=== PATIENT | female | born 1930 | race Hispanic/Latino ===

== ENCOUNTER 2018-03-15 06:35 | Observation (INO) | payer MEDICARE ==
[2018-03-15 07:17] LABS: #Basophils 0.1 thou/uL (0.0-0.2); #Eosinphils 0.2 thou/uL (0.0-0.7); #Lymphocytes 1.9 thou/uL (1.20-3.40); #Monocytes 0.7 thou/uL (0.11-0.59); #Neutrophils 6.7 thou/uL (1.40-6.50); %Basophils 0.6 % (0.0-1.0); %Eosinophils 1.8 % (0.0-10.0); %Lymphocytes 19.5 % (21.0-51.0); %Monocytes 7.5 % (0.0-10.0); %Neutrophils 70.7 % (42.0-75.0); Hemoglobin 13.2 g/dL (12.0-16.0); Mean Corpuscular HGB CONC 31.9 g/dL (32.0-36.0); Mean Corpuscular Hemoglobin 28.8 pg (27.0-31.0); Mean Corpuscular Volume 90.3 fL (78.0-98.0); Mean Platelet Volume 8.7 fL (7.4-10.4); Platelet Count 194 thou/uL (130-400); RBC Distribution Width 12.8 % (11.5-14.5); White Blood Cell (WBC) Count 9.5 thou/uL (4.8-10.8)
[2018-03-15 07:30] LABS: ALT (SGPT) 13 U/L (8-55); AST (SGOT) 13 U/L (5-34); Alkaline Phosphatase 50 U/L (40-150); Anion Gap 16 mmol/L (10-20); BUN (Urea Nitrogen) 39 mg/dL (9.8-20.1); Bilirubin, Total 0.9 mg/dL (0.2-1.2); Calc. Creatinine Clearance 0 mL/min (70-130); Calcium 9.9 mg/dL (7.8-10.44); Carbon Dioxide 22 mmol/L (23-31); Chloride 104 mmol/L (98-107); Estimated GFR-MDRD 30; Globulin 3.1 g/dL (2.4-3.5); Glucose 95 mg/dL (83-110); Potassium 4.2 mmol/L (3.5-5.1); Protein, Total 7.1 g/dL (6.0-8.3); Sodium 138 mmol/L (136-145)
[2018-03-15 07:35] LABS: CKMB 1.1 ng/mL (0-6.6); Troponin I Less than 0.010 ng/mL (< 0.028)
--- NOTE | 2018-03-15 07:53 | CT ---
CT CERVICAL SPINE: Date: 03/15/18 Multiple axial tomograms obtained through the cervical spine with multiplanar reconstruction. INDICATION: Fall with injury to neck. FINDINGS: Vertebral bodies maintain height and alignment. Moderate degenerative changes are noted. Loss of disc space and hypertrophic changes are most prominent at C5-6 and C6-7 levels. Posterior spondylitic jakob nges are seen throughout the cervical spine, but are especially prominent at C5-6 and C6-7 where the se changes impinge on the anterior cord. Posterior laminectomy changes are present at these levels pr eventing significant central canal stenosis. There is no evidence of an acute fracture. IMPRESSION: Degenerative and postoperative changes of the cervical spine noted. No evidence of acute fracture. POS: [facility]
--- NOTE | 2018-03-15 07:54 | CT ---
CT HEAD WITHOUT CONTRAST: Date: 03/15/18 Multiple axial tomograms obtained through the head without IV enhancement. INDICATION: Fall with injury to head. FINDINGS: Mild cortical volume loss with ventriculomegaly. No evidence of acute hemorrhage. No mass or infarct. Moderately severe chronic ischemic white matter change. IMPRESSION: No acute abnormality identified. POS: [facility]
[2018-03-15] MEDS ORDERED: Lidocaine 1% (PF) 30 ML VIAL ONE (08:49)
[2018-03-15] MEDS ORDERED: HYDROcodone/Acetaminophen 5/325 mg Tablet ONE (09:04)
[2018-03-15 09:21] LABS: Bilirubin Negative (Negative); Blood, Urine Negative (Negative); Clarity CLEAR (Clear); Glucose, Urine (Dipstick) Negative (Negative); Leukocyte Negative (Negative); Nitrite Negative (Negative); Protein, Urine (Dipstick) Trace mg/dL (Neg-Trace); Specific Gravity, Urine 1.014 (1.002-1.036)
[2018-03-15] MEDS ORDERED: Morphine 4 MG/ML VIAL ONE (10:19)
[2018-03-15] MEDS ORDERED: Ondansetron PF 4 MG/2 ML Vial ONE (11:12)
--- NOTE | 2018-03-15 11:37 | RAD ---
RIGHT SHOULDER RADIOGRAPHS 2 VIEWS: Date: 03/15/18 PROVIDED CLINICAL HISTORY: Right shoulder pain status post injury. FINDINGS: There is anterior dislocation of the right shoulder. Associated fracture is not evident. Visualized r ight lung field appears clear. IMPRESSION: Anterior right shoulder dislocation. POS: [facility]
--- NOTE | 2018-03-15 11:38 | RAD ---
3 VIEWS RIGHT SHOULDER: Date: 03/15/18 PROVIDED CLINICAL HISTORY: Post reduction. FINDINGS: Interval reduction of the previously described anterior right shoulder dislocation. No evidence for f racture. IMPRESSION: As above. POS: [facility]
[2018-03-15] MEDS ORDERED: Acetaminophen 325 MG TAB PO PRN ×2 (13:11→14:37)
[2018-03-15] MEDS ORDERED: Ondansetron PF 4 MG/2 ML Vial IVP PRN (13:11)
[2018-03-15] MEDS ORDERED: Sodium Chloride 0.9% 1,000 ML IV SCH (13:11)
[2018-03-15] MEDS ORDERED: Ondansetron ODT 4 MG TAB SL PRN (13:11)
[2018-03-15 13:29] VITALS: BMI 32.5
[2018-03-15] MEDS ORDERED: Bisacodyl 5 MG TAB PO PRN (14:37)
[2018-03-15] MEDS ORDERED: Senokot S 8.6-50 MG TAB PO PRN (14:37)
[2018-03-15] MEDS ORDERED: Dextrose 5% in Water 1,000 ML IV PRN (14:39)
[2018-03-15] MEDS ORDERED: HumaLOG 300 UNITS/3 ML VIAL SC PRN (14:39)
[2018-03-15] MEDS ORDERED: Dextrose 50% Abboject 50 ML SYRINGE SLOW IVP PRN (14:39)
[2018-03-15] MEDS ORDERED: oxyCODONE 5 MG TAB PO PRN (14:40)
[2018-03-15] MEDS ORDERED: Morphine 2 MG/ML SYRINGE SLOW IVP PRN (14:41)
[2018-03-15] MEDS: Heparin 5,000 UNITS/ML VIAL SC SCH ×2 (15:26→21:11)
[2018-03-15] MEDS ORDERED: hydrALAZINE 20 MG/ML VIAL SLOW IVP PRN (17:19)
--- NOTE | 2018-03-15 20:32 | HP ---
CHIEF COMPLAINT: Fall. HISTORY OF PRESENT ILLNESS: The patient is a very pleasant 87-year-old female with a past medical hi story of hypertension and severe osteoarthritis who presented to the hospital after a fall. The lisandro ent's family is at the bedside. The patient lives with her son who stated that he heard her calling for him. When he was there, she was on the floor and also her walker was tipped over. The patient h as a history of dementia and really cannot provide a very great H&P. Unknown if patient got dizzy or if she just had a mechanical fall. The patient denies any recent palpitations or chest pain or any significant changes recently. No recent medications were changed. Patient did have her right should er injection by Orthopedic I believe a week ago. The patient in the ER was found to have a 3-4 cm la ceration. She did have required some stitches. Also, she had a dislocated right shoulder which was put back in place and currently is on a sling. PAST MEDICAL HISTORY: She has a history of diabetes, hyperlipidemia, and hypertension. PAST SURGICAL HISTORY: She has had no significant surgical history. This patient has had multiple b ack surgeries, also in the past. SOCIAL HISTORY: She denies any history of alcohol use, drug use or smoking history. She is a DNR pe r her daughters. REVIEW OF SYSTEMS: Patient is complaining of some right-sided shoulder pain. Otherwise, all negativ e except for the ones mentioned above in the HPI. ALLERGIES: CODEINE. Her allergy is nausea. MEDICATIONS: Metoclopramide 100 mg daily, simvastatin 40 mg daily, furosemide 40 mg every other day, gabapentin 100 mg daily, hydralazine 50 daily and glipizide 2.5 mg daily. PHYSICAL EXAMINATION: VITAL SIGNS: Temperature 98.6, 14, 81, her blood pressure is 180/60. GENERAL: She is awake, alert, oriented x3. Has some pain to her right shoulder. CARDIOVASCULAR: S1, S2 present. No murmurs, rubs or gallops. LUNGS: Clear to auscultation, rhonchi or wheezes noted. ABDOMEN: Soft, nontender. Bowel sounds are present x2. EXTREMITIES: No edema. Pedal pulses are present x2. She does have mild edema to lower extremity. Pedal pulses are present x2. NEUROVASCULAR: No focal deficits are noted. SKIN: She does have an abrasion to her left forehead area. LABORATORY DATA: As of the following: WBC of 9.5, hemoglobin of 13.2, hematocrit 41.5, platelets of 194. Chemistry: Sodium 130, potassium of 4.2, BUN of 39, creatinine of 1.62, which is chronic. He r glucose was 147. Her urine was completely normal. She did have a chest x-ray, brain CT, shoulder x-ray and a cervical spine which was essentially normal except for the shoulder x-ray indicated the d islocation which was put back in place by ER. The only thing that was noted on her x-rays was she melendrez d some degenerative changes. ASSESSMENT AND PLAN: The patient is a very pleasant 87-year-old female who comes in after a fall. 1. Possible syncope versus mechanical fall. It was unwitnessed. We will get an echocardiogram just to make sure that there was nothing in terms of a cardiac longoria that caused her to have a syncopal ep isode. Patient will be a good candidate for inpatient rehabilitation. We will continue some pain me dication. 2. She has history of chronic kidney disease, stable. We will continue to monitor. 3. Diabetes. We will continue medication. Her hemoglobin A1c was done recently was 6.2. She is 87 years old. I would recommend against any antidiabetic medications. 4. Hypertension. We will continue her home medications. 5. Deep venous thrombosis prophylaxis. We will put patient on subcutaneous heparin.
[2018-03-15] MEDS ORDERED: Prevnar 13-Val Conj/PF 0.5 ML SYRINGE IM ONE (21:00)
[2018-03-15] MEDS ORDERED: Atorvastatin Calcium 20 MG TAB PO SCH (21:00)
[2018-03-15] MEDS ORDERED: Gabapentin 100 MG CAP PO SCH (21:00)
[2018-03-15] MEDS: hydrALAZINE 25 MG TAB PO SCH (21:12)
[2018-03-16] MEDS ORDERED: Ondansetron ODT 4 MG TAB SL PRN (04:50)
[2018-03-16] MEDS ORDERED: Ondansetron PF 4 MG/2 ML Vial IVP PRN (04:50)
[2018-03-16] MEDS ORDERED: Sodium Chloride 0.9% 1,000 ML IV SCH (05:00)
[2018-03-16 05:42] LABS: #Lymphocytes 0.9 thou/uL (1.20-3.40); #Monocytes 0.7 thou/uL (0.11-0.59); #Neutrophils 6.5 thou/uL (1.40-6.50); %Basophils 0.2 % (0.0-1.0); %Eosinophils 0.2 % (0.0-10.0); %Lymphocytes 10.7 % (21.0-51.0); %Monocytes 8.7 % (0.0-10.0); %Neutrophils 80.2 % (42.0-75.0); Hemoglobin 10.9 g/dL (12.0-16.0); Mean Corpuscular HGB CONC 32.3 g/dL (32.0-36.0); Mean Corpuscular Hemoglobin 29.2 pg (27.0-31.0); Mean Corpuscular Volume 90.5 fL (78.0-98.0); Mean Platelet Volume 9.5 fL (7.4-10.4); Platelet Count 176 thou/uL (130-400); RBC Distribution Width 12.8 % (11.5-14.5); Red Blood Cell (RBC) Count 3.75 mill/uL (4.20-5.40); White Blood Cell (WBC) Count 8.1 thou/uL (4.8-10.8)
[2018-03-16 06:07] LABS: Anion Gap 12 mmol/L (10-20); BUN (Urea Nitrogen) 37 mg/dL (9.8-20.1); Calc. Creatinine Clearance 30 mL/min (70-130); Calcium 9.1 mg/dL (7.8-10.44); Carbon Dioxide 22 mmol/L (23-31); Chloride 107 mmol/L (98-107); Estimated GFR-MDRD 33; Glucose 151 mg/dL (83-110); Potassium 4.4 mmol/L (3.5-5.1); Sodium 137 mmol/L (136-145)
[2018-03-16] MEDS ORDERED: Furosemide 40 MG TAB PO SCH (09:00)
[2018-03-16] MEDS ORDERED: glipiZIDE 5 MG TAB PO SCH (09:00)
[2018-03-16] MEDS: hydrALAZINE 25 MG TAB PO SCH (10:08)
[2018-03-16] MEDS: Heparin 5,000 UNITS/ML VIAL SC SCH ×2 (10:12→15:19)
[2018-03-16 16:37] VITALS: BP 174/76; TEMP 98.4
--- NOTE | 2018-03-16 18:25 | DIS ---
DATE OF ADMISSION: 03/15/2018 DATE OF DISCHARGE: 03/16/2018 DISCHARGE DIAGNOSES: 1. Possible syncope. 2. Fall. 3. Hypertension. 4. Diabetes. HOSPITAL COURSE: Patient is a very pleasant 87-year-old female who initially presented to the hospit al after a fall, unknown if this was a syncopal episode or not. She did have a brain CT, cervical sp ine and her right shoulder x-ray. CT head and cervical spine just indicated some degenerative change s. The patient has history of significant back surgeries in the past and she walks normally with a w alker. Her mobility is very limited. She did have a dislocation of her right shoulder which was put back in place in the ER and currently has a sling. Patient did have an echocardiogram ordered; saul mcginnis, the results have not been read as of yet which is pending. The patient states she feels much be tter today. Family would like the patient to go to inpatient rehabilitation. She is a DNR. The pat ient normally functions, gets up from the bed to the bathroom, walks around the kitchen with a walker . LABORATORY DATA: Laboratory results longoria no UTI, no infection. Pneumonia was noted. Labs were sign ificantly normal. PHYSICAL EXAMINATION: VITAL SIGNS: 98.0, 73, 16, 98% on room air, 135/72. GENERAL: She is awake, alert, oriented x3, does not appear in distress. CARDIOVASCULAR: S1, S2 present. No murmurs, rubs or gallops. LUNGS: Clear to auscultation. No rhonchi or wheezes noted. ABDOMEN: Soft, nontender. Bowel sounds are present. EXTREMITIES: No edema. Pedal pulses are present x2. She does have her right arm in a sling. NEUROLOGIC: She is able to move her fingers and able to squeeze her fingers also. DISCHARGE MEDICATIONS: Simvastatin 40 mg at bedtime, metoprolol 100 daily, hydralazine 25 mg b.i.d., glipizide 2.5 daily, gabapentin 100 mg p.o. at bedtime, furosemide 40 mg every other day, vitamin D3 1000 units daily, Senokot 2 tabs b.i.d. Again, she will be discharged to rehabilitation. She will follow up with her primary and again I do have an echocardiogram which is pending. I have notified the rehab coordinator about this, so that t he rehabilitation physician can keep an eye on it and also, I will save her in my records to follow u p with that.
--- NOTE | 2018-03-22 23:07 | EKG ---
Test Reason : Blood Pressure : / mmHG Vent. Rate : 082 BPM Atrial Rate : 082 BPM P-R Int : 132 ms QRS Dur : 080 ms QT Int : 372 ms P-R-T Axes : 089 008 117 degrees QTc Int : 434 ms Normal sinus rhythm Nonspecific ST and T wave abnormality Abnormal ECG Confirmed by EMMA SORIA ([id number]), development editor NORM PADRON ([id number]) on 03/22/2018 11:06:43 PM Referred By: Confirmed By:EMMA SORIA
== END 2018-03-16 18:44 ==
LOC: ERS 06:35 → 2NO 13:07
PROVIDERS: ADMIT Internal Medicine; ATTEND Internal Medicine
DX: S01.81XA Laceration without foreign body of other part of head, initial encounter (principal); S43.004A Unspecified dislocation of right shoulder joint, initial encounter; F03.90 Unspecified dementia, unspecified severity, without behavioral disturbance, psychotic disturbance, mood disturbance, and anxiety; I12.9 Hypertensive chronic kidney disease with stage 1 through stage 4 chronic kidney disease, or unspecified chronic kidney disease; E11.22 Type 2 diabetes mellitus with diabetic chronic kidney disease; N18.9 Chronic kidney disease, unspecified; M19.90 Unspecified osteoarthritis, unspecified site; E78.5 Hyperlipidemia, unspecified; M50.322 Other cervical disc degeneration at C5-C6 level; Z66 Do not resuscitate; Z79.84 Long term (current) use of oral hypoglycemic drugs; Z79.899 Other long term (current) drug therapy; Z88.5 Allergy status to narcotic agent; Z98.890 Other specified postprocedural states; W19.XXXA Unspecified fall, initial encounter
CPT/HCPCS: 12014; 23650; 51701; 70450; 72125; 73030; 80048; 80053; 81003; 82553; 82962 ×2; 83735; 84484; 85025 ×2; 93005; 93306; 94760; 96361 ×3; 96374; 96375 ×2; 96376; 99285; G0378 ×2; 36415; 36416; A4353; J0360; J1644; J2001; J2270; J2405

== ENCOUNTER 2018-04-01 01:37 | Observation (INO) | payer MEDICARE ==
[2018-04-01 02:26] LABS: #Basophils 0.1 thou/uL (0.0-0.2); #Eosinphils 0.1 thou/uL (0.0-0.7); #Lymphocytes 0.9 thou/uL (1.20-3.40); #Monocytes 0.5 thou/uL (0.11-0.59); #Neutrophils 6.8 thou/uL (1.40-6.50); %Basophils 0.7 % (0.0-1.0); %Eosinophils 1.4 % (0.0-10.0); %Lymphocytes 10.7 % (21.0-51.0); %Monocytes 5.8 % (0.0-10.0); %Neutrophils 81.4 % (42.0-75.0); Hemoglobin 11.6 g/dL (12.0-16.0); Mean Corpuscular HGB CONC 31.6 g/dL (32.0-36.0); Mean Corpuscular Hemoglobin 28.9 pg (27.0-31.0); Mean Corpuscular Volume 91.7 fL (78.0-98.0); Mean Platelet Volume 8.3 fL (7.4-10.4); Platelet Count 297 thou/uL (130-400); RBC Distribution Width 13.2 % (11.5-14.5); White Blood Cell (WBC) Count 8.3 thou/uL (4.8-10.8)
[2018-04-01 02:44] LABS: ALT (SGPT) 24 U/L (8-55); AST (SGOT) 24 U/L (5-34); Albumin 3.8 g/dL (3.4-4.8); Alkaline Phosphatase 45 U/L (40-150); Anion Gap 13 mmol/L (10-20); BUN (Urea Nitrogen) 32 mg/dL (9.8-20.1); Bilirubin, Total 0.4 mg/dL (0.2-1.2); Calc. Creatinine Clearance 0 mL/min (70-130); Calcium 9.8 mg/dL (7.8-10.44); Carbon Dioxide 23 mmol/L (23-31); Chloride 103 mmol/L (98-107); Estimated GFR-MDRD 20; Globulin 2.8 g/dL (2.4-3.5); Glucose 130 mg/dL (83-110); Potassium 5.4 mmol/L (3.5-5.1); Protein, Total 6.6 g/dL (6.0-8.3); Sodium 134 mmol/L (136-145)
[2018-04-01 04:08] LABS: Troponin I Less than 0.010 ng/mL (< 0.028)
[2018-04-01 05:07] LABS: Bilirubin Negative (Negative); Blood, Urine Negative (Negative); Clarity CLEAR (Clear); Glucose, Urine (Dipstick) Negative (Negative); Leukocyte Negative (Negative); Nitrite Negative (Negative); Protein, Urine (Dipstick) Negative (Neg-Trace); Specific Gravity, Urine 1.009 (1.002-1.036)
--- NOTE | 2018-04-01 07:47 | RAD ---
SINGLE VIEW OF THE CHEST: COMPARISON: None. HISTORY: Low blood sugar. FINDINGS: A single view of the chest shows an enlarged cardiomediastinal silhouette. There is no evidence of c onsolidation, mass, or pleural effusion. Increased interstitial lung markings are present. IMPRESSION: Cardiomegaly. POS: [facility]
[2018-04-01] MEDS ORDERED: Dextrose 50% Abboject 50 ML SYRINGE ONE (07:52)
[2018-04-01] MEDS ORDERED: Dextrose 5% in Water 1,000 ML IV PRN (07:53)
[2018-04-01] MEDS ORDERED: Senokot S 8.6-50 MG TAB PO PRN (07:53)
[2018-04-01] MEDS ORDERED: Loperamide HCl 2 MG CAP PO PRN (07:53)
[2018-04-01] MEDS ORDERED: Sodium Chloride 0.65% Nasal 44 ML BOT EA NARE PRN (07:53)
[2018-04-01] MEDS ORDERED: hydrALAZINE 20 MG/ML VIAL SLOW IVP PRN (07:53)
[2018-04-01] MEDS ORDERED: Dextrose 50% Abboject 50 ML SYRINGE SLOW IVP PRN (07:53)
[2018-04-01] MEDS ORDERED: Bisacodyl 10 MG SUPP PR PRN (07:53)
[2018-04-01] MEDS ORDERED: Artificial Tears 18 DROP/0.9 ML EA EYE PRN (07:53)
[2018-04-01] MEDS ORDERED: Loratadine 10 MG TAB PO PRN (07:53)
[2018-04-01] MEDS ORDERED: Ondansetron ODT 4 MG TAB PO PRN (07:53)
[2018-04-01] MEDS ORDERED: Ondansetron PF 4 MG/2 ML Vial IVP PRN (07:53)
[2018-04-01] MEDS ORDERED: Acetaminophen 325 MG TAB PO PRN (07:53)
[2018-04-01] MEDS ORDERED: Diabetic Tussin 200 MG/10 ML UDCUP PO PRN (07:53)
[2018-04-01] MEDS ORDERED: Cepastat Lozenges 1 LOZ PO PRN (07:53)
[2018-04-01] MEDS ORDERED: Eucerin (Mineral Oil/Petrolatum,White) 30 gm Jar TOP PRN (07:53)
[2018-04-01] MEDS: Dextrose 10% in Water 1,000 ML IV SCH ×2 (08:09→21:06)
[2018-04-01 08:19] VITALS: BMI 33.6
[2018-04-01] MEDS: Famotidine 20 MG TAB PO SCH (08:47)
--- NOTE | 2018-04-01 10:52 | HP ---
DATE OF ADMISSION: 04/01/2018 PRIMARY CARE PHYSICIAN: Rhonda Gruber M.D. REASON FOR ADMISSION: Acute metabolic encephalopathy due to hypoglycemia. HISTORY OF PRESENT ILLNESS: An 87-year-old female who lives at home with family who has rec ently required emergency room visit for mechanical fall at home and from the emergency room, the lisandro hall was discharged to rehab where she stayed only one day because the patient did not like it at reha b and that is why family member took her to home. For the last 2 weeks, the patient is not eating we ll. Her hepatitis has reduced. She was becoming more and more weak. The patient has underlying dem entia and per family member, her dementia is getting worse and she requires a lot of assistance from family member for daily routine activities of life. The patient's family member brought her to emergency room because she was lethargic, not responsive a s she used to and that is why they checked blood sugar, it was very low. Per report, it was 42 and t he patient was given D50. Subsequently, the patient became alert. In the emergency room, the leonora landaverde's blood sugar kept dropping recurrently and that is why we have to start D10 drip. The patient was also given D50 after admission to telemetry floor. When I saw this patient at that time, the patijenn t was awake, she was able to eat, but appeared very weak and exhausted. Family member was present wh o provided most of the history. This patient has gradually worsening renal failure and the patient is taking glipizide at home. The patient did not have any fever, chills, UTI symptoms, constipation, diarrhea, melena or hematochezia. The patient had recently bronchitis and per family member, she was treated with antibiotic therapy an d she has recovered from bronchitis. REVIEW OF SYSTEMS: The following complete review of systems was negative, unless otherwise mentioned in the HPI or below: Constitutional: Weight loss or gain, ability to conduct usual activities. Sk in: Rash, itching. Eyes: Double vision, pain. ENT/Mouth: Nose bleeding, neck stiffness, pain, te nderness. Cardiovascular: Palpitations, dyspnea on exertion, orthopnea. Respiratory: Shortness of breath, wheezing, cough, hemoptysis, fever or night sweats. Gastrointestinal: Poor appetite, abdom inal pain, heartburn, nausea, vomiting, constipation, or diarrhea. Genitourinary: Urgency, frequenc y, dysuria, nocturia. Musculoskeletal: Pain, swelling. Neurologic/Psychiatric: Anxiety, depressio n. Allergy/Immunologic: Skin rash, bleeding tendency. Please see my HPI for pertinent positive and negative. All other review of system reviewed and negative except as mentioned in the HPI. Review of systems not reliable because of the patient's mild cognitive impairment. PAST MEDICAL HISTORY: Diabetes type 2, hypertension, dyslipidemia, CKD stage 4, anemia of renal dise ase, senile dementia, obesity with BMI 33, chronic constipation. PAST SURGICAL HISTORY: Multiple back surgeries in the past and since then, the patient has chronic l ow back pain. PAST PSYCHIATRIC HISTORY: Reviewed and negative. SOCIAL HISTORY: The patient lives with her son and other daughter helping out. No history of smokin g. No history of alcohol or other illicit drug abuse. The patient requires a lot of assistance from family member for daily activities of life. ALLERGIES: CODEINE gives nausea. FAMILY HISTORY: No strong family history of premature coronary artery disease, stroke or cancer. CURRENT HOME MEDICATIONS: Tylenol 500 mg b.i.d. p.r.n., Lasix 40 mg every other day, glipizide 2.5 m g daily, hydralazine 25 mg p.o. b.i.d., Toprol XL 100 mg p.o. daily, Zocor 40 mg p.o. at bedtime, sen na 2 tablets twice daily p.r.n. EMERGENCY ROOM COURSE: Reviewed. PHYSICAL EXAMINATION: VITAL SIGNS: On arrival, blood pressure 185/90, pulse 77, respiratory rate 19, temperature 98.4, sat uration 98% on room air, weight 81.7 kilograms. GENERAL: The patient is currently awake, alert, in no obvious acute distress. Appears weak. HEAD: Normocephalic, atraumatic. EYES: Pupils round and reactive to light. Extraocular muscle intact. ENT: Oropharynx within normal limits. Moist mucous membranes. No oral lesion, no pharyngeal erythe ma, no exudate. NECK: Supple. No JVD, no thyromegaly, no carotid bruit. LUNGS: Clear to auscultation without any rhonchi or rales. CARDIAC: S1, S2 appears regular. No murmur, no gallop, no rub. ABDOMEN: Soft, bowel sounds present, nontender, nondistended. No organomegaly, no mass, no suprapub ic tenderness. BACK: Unremarkable. No CVA tenderness. EXTREMITIES: Upper extremities, passive movement of all joints are normal. Lower extremities, no ed nina. Good distal pulsation. SKIN: No skin rash. HEMATOLOGICAL: No lymphadenopathy. PSYCHIATRIC: Normal affect. NEUROLOGIC: Nonfocal examination. She moves all 4 limbs. SIGNIFICANT LABORATORY DATA: EKG based on my review, normal sinus rhythm, nonspecific ST-T changes. Chest x-ray based on my review, no acute cardiopulmonary process. Recent echocardiography on 2017 showed normal EF, moderate tricuspid regurgitation and moderate mitral regurgitation. CBC, WBC 8.3, hemoglobin 11.6, platelet 297,000. BMP, sodium 134, potassium 5.4, chloride 103, carbon dioxide 23, anion gap 13, BUN 32, creatinine 2.33, glucose 130, calcium 9.8. Subsequently, blood glucose wa s 58, 74 and 37. LFT, AST 24, ALT 24, alkaline phosphatase 45, albumin 3.8. BNP 138. Urinalysis no rmal. ASSESSMENT AND PLAN: 1. Acute metabolic encephalopathy due to hypoglycemia associated with diabetes type 2, resolved. 2. Hypoglycemia associated diabetes type 2. This patient is taking oral hypoglycemic agent. She melendrez s chronic kidney disease stage 4 and the patient also has lately poor p.o. intake, all contributed to her hypoglycemia. Currently, the patient's blood sugar drops recurrently and that is why we will ke ep this patient in hospital for observation for 24 hours. We are going to start D10 drip and wheneve r blood sugar is improving consistently, then we will discontinue D10 drip and watch another 24 hours for any hypoglycemia. This patient is not a candidate for oral hypoglycemic agent nowadays because of advancing renal failure. I advised the family member to watch her Accu-Chek periodically at home and we will try to manage her diabetes with her diet only. 3. Hypertension. We will resume the patient's blood pressure medication, hydralazine 25 mg p.o. b.i .d. and Toprol XL 100 mg p.o. daily. 4. Dyslipidemia. Continue Zocor 40 mg p.o. at bedtime. 5. Mild hyperkalemia and hyponatremia, likely due to advancing renal failure. 6. Chronic kidney disease stage 4. The patient will need monitoring of renal function. The patient is following outpatient Nephrology. 7. Obesity with BMI of 33. Dietary education given. 8. Anemia, normocytic, normochromic. The patient will need multivitamin 1 tablet p.o. daily. 9. Senile dementia. This patient has cognitive impairment, likely due to dementia and she will need supportive care. 10. Deep vein thrombosis prophylaxis is not needed because we are expecting discharge in 24 hours. 11. Gastrointestinal prophylaxis, Pepcid 20 mg p.o. daily. CODE STATUS: The patient is DNR. The patient's son and daughter are her surrogate decision makers. Disposition plan based on clinical course, likely within 24 hours. Plan of care discussed with the p atient and family member at bedside in the emergency room.
[2018-04-01] MEDS ORDERED: Atorvastatin Calcium 20 MG TAB PO SCH (21:00)
[2018-04-01] MEDS: hydrALAZINE 25 MG TAB PO SCH (21:08)
[2018-04-02 04:42] LABS: #Basophils 0.1 thou/uL (0.0-0.2); #Eosinphils 0.2 thou/uL (0.0-0.7); #Lymphocytes 1.4 thou/uL (1.20-3.40); #Monocytes 0.8 thou/uL (0.11-0.59); #Neutrophils 5.4 thou/uL (1.40-6.50); %Basophils 0.9 % (0.0-1.0); %Eosinophils 2.3 % (0.0-10.0); %Lymphocytes 17.9 % (21.0-51.0); %Monocytes 10.3 % (0.0-10.0); %Neutrophils 68.5 % (42.0-75.0); Hemoglobin 10.6 g/dL (12.0-16.0); Mean Corpuscular Hemoglobin 28.5 pg (27.0-31.0); Mean Corpuscular Volume 91.9 fL (78.0-98.0); Mean Platelet Volume 8.9 fL (7.4-10.4); Platelet Count 278 thou/uL (130-400); RBC Distribution Width 13.3 % (11.5-14.5); Red Blood Cell (RBC) Count 3.72 mill/uL (4.20-5.40); White Blood Cell (WBC) Count 7.9 thou/uL (4.8-10.8)
[2018-04-02 05:01] LABS: Anion Gap 9 mmol/L (10-20); BUN (Urea Nitrogen) 32 mg/dL (9.8-20.1); Calc. Creatinine Clearance 19 mL/min (70-130); Calcium 9.2 mg/dL (7.8-10.44); Carbon Dioxide 24 mmol/L (23-31); Chloride 100 mmol/L (98-107); Estimated GFR-MDRD 19; Glucose 164 mg/dL (83-110); Potassium 5.4 mmol/L (3.5-5.1); Sodium 128 mmol/L (136-145)
[2018-04-02] MEDS ORDERED: Multivit, Therapeutic 1 TAB PO SCH (09:00)
[2018-04-02] MEDS: hydrALAZINE 25 MG TAB PO SCH (09:49)
[2018-04-02] MEDS: Famotidine 20 MG TAB PO SCH (09:49)
[2018-04-02 11:41] VITALS: BP 128/60; TEMP 98.4
--- NOTE | 2018-04-03 01:54 | DIS ---
DATE OF ADMISSION: 04/01/2018 DATE OF DISCHARGE: 04/02/2018 DISCHARGE DIAGNOSES: 1. Acute metabolic encephalopathy due to hypoglycemia associated with type 2 diabetes, resolved. 2. Hypoglycemia, resolved. 3. Hypertension, stable. 4. Dyslipidemia, stable. 5. Mild hyperkalemia, stable. 6. Hyponatremia, stable. 7. Chronic kidney disease, stage 4, stable. 8. Senile dementia, at baseline. CONSULTATIONS: None. PERTINENT LABORATORY AND DIAGNOSTIC FINDINGS: WBC 7.9, RBC 3.72, hemoglobin 10.6, platelet 278. Sod ium 134, potassium 5.4, creatinine 2.36, estimated GFR 19, glucose ranged between 155-189 throughout the hospital course. Chest x-ray showed cardiomegaly; however, no evidence of consolidation, mass or pleural effusion noted. HOSPITAL COURSE: Ms. Espinoza is a pleasant 87-year-old female who presented to [facility] with altered mental status along with hypoglycemia, she seemed very lethargic, blood suga r upon arrival was 42, she was given D50 and tolerated well. She was started on D10 drip and this wa s continued upon admission. She was monitored closely along with close Accu-Cheks. Due to hypokalem ia and poor oral intake, her home dose of glipizide was held and was later discontinued. It was jamar mmended that the patient not continue this upon discharge as her poor oral intake puts her at greater risk of hypoglycemia in the future. Dextrose 10% drip was stopped during hospital course and she wa s started on a diabetic diet. She had tolerated this very well, she had eaten her lunch and tolerate d well. She had returned to baseline per family. She was seen and examined prior to discharge, she had no complaints of chest pain, shortness of breath or abdominal pain. She had remained at baseline mentation. It was recommended that she follow up with her PCP in 1-2 weeks along with her nephrolog ist, Dr. Wall in 1-2 weeks. It was thoroughly discussed with the patient and family to stop her home dose of glipizide as she has greater risk of hypoglycemia. Blood sugar throughout the hospital cour se remained stable without this as highest reading was 189. She was determined to be medically stabl e for discharge on 04/02/2018 with close outpatient follow up with PCP and purchasing assistant to monitor bl ood sugars and BMP closely. DISCHARGE MEDICATIONS: 1. Simvastatin 40 mg oral at bedtime. 2. Furosemide 40 mg oral every 2 days. 3. Hydralazine 25 mg oral twice daily. 4. Metoprolol 100 mg oral daily. 5. Senokot 2 tabs oral twice daily as needed for constipation. 6. Acetaminophen 500 mg oral twice daily as needed for pain. FOLLOWUP: The patient is to follow up with her primary care physician, Dr. Gruber in 1-2 weeks, she is also to follow up with her purchasing assistant, Dr. Wall in 2-4 weeks with close outpatient labs to [facility] renal function. CONDITION ON DISCHARGE: Stable. ACTIVITY: As tolerated. DIET: Diabetic diet. DISPOSITION: Home with family on 04/02/2018.
== END 2018-04-02 15:40 | disposition home or self-care (01) ==
LOC: ERS 01:37 → 2SW 04:45
PROVIDERS: ADMIT Internal Medicine; ATTEND Internal Medicine
DX: E11.649 Type 2 diabetes mellitus with hypoglycemia without coma (principal); G93.41 Metabolic encephalopathy; F03.90 Unspecified dementia, unspecified severity, without behavioral disturbance, psychotic disturbance, mood disturbance, and anxiety; I12.9 Hypertensive chronic kidney disease with stage 1 through stage 4 chronic kidney disease, or unspecified chronic kidney disease; E11.22 Type 2 diabetes mellitus with diabetic chronic kidney disease; N18.4 Chronic kidney disease, stage 4 (severe); D63.1 Anemia in chronic kidney disease; E78.5 Hyperlipidemia, unspecified; K59.09 Other constipation; G89.29 Other chronic pain; M54.9 Dorsalgia, unspecified; E87.1 Hypo-osmolality and hyponatremia; E87.5 Hyperkalemia; E66.9 Obesity, unspecified; Z68.33 Body mass index [BMI] 33.0-33.9, adult; Z79.84 Long term (current) use of oral hypoglycemic drugs; Z79.899 Other long term (current) drug therapy; Z66 Do not resuscitate
CPT/HCPCS: 71045; 80048; 80053; 81003; 82962 ×2; 83880; 84484; 85025 ×2; 93005; 94760; 96361 ×2; 96374; 96375; 99285; G0378 ×2; 36415; 36416; J0360

== ENCOUNTER 2018-04-05 12:58 | Emergency (ER) | payer MEDICARE ==
--- NOTE | 2018-04-05 14:41 | ULT ---
VENOUS DOPPLER ULTRASOUND OF THE RIGHT UPPER EXTREMITY: Date: 04/05/18 HISTORY: Right lower arm edema. TECHNIQUE: Boyle scale ultrasound with color flow and spectral Doppler imaging of the deep venous systems of the right upper extremity performed. FINDINGS: There is good flow, compression, and normal spectral waveforms in the deep veins of the right upper e xtremity including the right internal jugular, subclavian, axillary, brachial, radial, ulnar, basilic , and cephalic veins. IMPRESSION: No evidence of deep venous thrombosis in the right upper extremity. POS: [facility]
== END 2018-04-05 14:50 | disposition home or self-care (01) ==
LOC: ERS 12:58
DX: M79.81 Nontraumatic hematoma of soft tissue (principal); E11.9 Type 2 diabetes mellitus without complications; E78.5 Hyperlipidemia, unspecified; Z79.899 Other long term (current) drug therapy